=== PATIENT | male | born 1985 | race Caucasian/White ===

== ENCOUNTER 2024-07-15 21:00 | Emergency (ER) | payer OTHER, SELFPAY ==
[2024-07-15 21:06] VITALS: BP 131/69; PULSE 65; RESP 18; TEMP 36.9; O2SAT 98; BMI 31.0
--- NOTE | 2024-07-15 23:14 | PC.NURSE ---
pt from lobby, assume care of pt at this time
[2024-07-16 00:31] VITALS: BP 113/68; PULSE 51; RESP 16; TEMP 36.7; O2SAT 100
--- NOTE | 2024-07-16 00:55 | ED.GENADULT ---
HPI - General Adult General Chief complaint: General Medical Stated complaint: back pain, left shoulder pain Time Seen by Provider: 07/16/24 00:41 Source: patient, RN notes reviewed and old records reviewed Mode of arrival: ambulatory Limitations: no limitations History of Present Illness ED Provider: Faith BA narrative: 38-year-old male presents for evaluation of left-sided neck to his left arm. He reports that his symptoms started today. The patient states that he is a welder gas automatic by trade He reports that he is often in awkward positions underneath cars etcetera those weird positions contributed to chronic back pain and neck pain The patient reports that on arrival to the ED his pain was severe and worse than normal He took some ibuprofen around 7:00 a.m. prior to arrival He feels as though that is now helping as his pain is nearly completely resolved He denies any falls or trauma Related Data Previous Rx's ?Medication ?Instructions ?Recorded cyclobenzaprine 10 mg tablet 10 mg PO TID PRN muscle spasm #20 07/16/24 tabs Allergies Allergy/AdvReac Type Severity Reaction Status Date / Time No Known Allergies Allergy Verified 07/15/24 21:10 Review of Systems Constitutional: Constitutional: Denies body ache(s), Denies chills and Denies headache(s) ENT: Denies headache(s) and Reports neck pain Cardiovascular: Cardiovascular: Denies chest pain and Denies dyspnea Respiratory: Respiratory: Denies cough and Denies dyspnea Gastrointestinal: Gastrointestinal: Denies abdominal pain, Denies nausea and Denies vomiting Musculoskeletal: Musculoskeletal: Reports back pain, Reports muscle cramps, Reports neck pain, Reports radiating pain into limb and Reports stiffness Integumentary/Breasts: Skin/Breast: Denies rash Neurologic: Denies headache(s) [facility] Social History Social History Smoked in Last 30 Days: No Use of substances other than those prescribed or required for medical reasons: No Advance Directives: No Advance Directives Information Provided: No Do you have a plan to hurt others: No Plan Physical Exam ED Vital Signs: Vital Signs - 24 hr 07/15/24 21:06 07/16/24 00:31 Temperature 98.4 F 98.1 F Pulse Rate 65 51 Respiratory Rate 18 16 Blood Pressure 131/69 113/68 Pulse Oximetry 98 100 Oxygen Delivery Method Room Air Room Air BMI result Body Mass Index 31.0 Const General: healthy appearing, comfortable, no acute distress, alert and awake Nutritional Appearance: well nourished Orientation/consciousness: patient oriented x3 HENMT Head: Yes normocephalic and Yes atraumatic Eyes Eyelids: Yes eyelids normal Conjunctivae: conjunctivae normal Sclerae: sclerae normal Corneas: corneas normal Pupils: Equal, round and reactive pupils present EOM: EOMs intact bilaterally Neck Neck: Yes full ROM Resp Effort & Inspection: normal respiratory effort, able to speak in complete sentences and not labored Skin General skin exam: elasticity normal Neuro General: patient oriented x3 Cranial nerves: Yes Equal, round and reactive pupils present and Yes Bilaterally intact EOM present Cognition (Neuro): normal cognition Extrem Other: Moving all extremities well without any obvious deformities Medical Decision Making Medical Decision Making MDM Narrative: History exam is consistent with muscle spasms. The patient's symptoms have completely resolved. I do not see any indication for emergent imaging at this time. Tarsal muscle relaxers for as needed if his symptoms return Differential Diagnosis Differential Diagnoses: The differential diagnosis associated with the presentation includes Muscle strain Cervical strain Arthritis Cervicalgia Spasmodic torticollis Radiculopathy Discharge Plan Discharge Clinical Impression: Acute left-sided back pain, Cervical strain Patient Disposition: Home, Self-Care Instructions: Cervical Strain (ED), Acute Low Back Pain (ED) Additional Instructions: You may continue using ibuprofen/Tylenol for pain You may use cyclobenzaprine as needed for muscle spasms. This may make you sleepy, did not drink alcohol or drive after taking it Prescriptions: New cyclobenzaprine 10 mg tablet 10 mg PO TID PRN (Reason: muscle spasm) Qty: 20 0RF Stand Alone Forms: Work/School Release Interventions: ED Discharge Assessment Last Done: 07/16/24 01:22 Discharge Date/Time: 07/16/24 01:23 Print Language: Lithuanian
[2024-07-16 01:22] VITALS: BP 113/68; PULSE 51; RESP 16; TEMP 36.7; O2SAT 100
== END 2024-07-16 01:23 | disposition home or self-care (01) ==
PROVIDERS: Emergency Provider Student in an Organized Health Care Education/Training Program
DX: S16.1XXA Strain of muscle, fascia and tendon at neck level, initial encounter (principal); M54.2 Cervicalgia; M54.50 Low back pain, unspecified; M25.512 Pain in left shoulder; X58.XXXA Exposure to other specified factors, initial encounter; Y93.9 Activity, unspecified; Y92.89 Other specified places as the place of occurrence of the external cause; Y99.8 Other external cause status
CPT/HCPCS: 99283; 99284